=== PATIENT | male | born 1985 | race Caucasian/White ===

== ENCOUNTER 2018-12-13 20:23 | Emergency (ER) | payer BC ==
[~2018-12-13] VITALS: Ht 172.7 cm; Wt 68.0 kg
--- NOTE | 2018-12-13 20:45 | NUR ---
Patient ambulated with stable gait. A/Ox4. Speech is clear, speaks in complete sentences. No neuro deficits. Patient came in for c/o headache x2 with worsening symptoms today. Patient states he's having a little trouble ambulating properly today which is why he came. Respiratory even and unlabored, no cough no sob. No GI/ distress noted. Patient in bed at lowest position, sr upx2, call light within reach. Fall precautions implemented per protocol.
--- NOTE | 2018-12-13 20:47 | NUR ---
ERMD at bedside for MSE.
--- NOTE | 2018-12-13 20:59 | NUR ---
Patient discharged to home in stable conditon. Written and verbal after care instructions given. Patient verbalizes understanding of instructions. Patient ambulated with stable gait.
== END 2018-12-13 21:01 | disposition home or self-care (01) ==
LOC: ER 20:23
DX: R51 Headache (principal); R07.89 Other chest pain
CPT/HCPCS: 93005; A4663